=== PATIENT | female | born 1985 | race Caucasian/White ===

== ENCOUNTER 2016-10-04 15:12 | Emergency (ER) | payer OTHER ==
--- NOTE | ~2016-10-04 | ER ---
PATIENT'S NAME: BAN MEI [facility] AGE: 31 Y [address] ROOM: [place] [id number] LOCATION: [facility] ADMIT DATE: 10/04/2016 ER/Outpatient Report DISCHARGE DATE: 10/04/2016 FAMILY PHYSICIAN: Dee Mei MD ATTENDING PHYSICIAN: Bradley Lin Time of patient arrival: 1512 hours. Time of patient evaluation: 1525 hours. CHIEF COMPLAINT: Thumb laceration. HISTORY OF PRESENT ILLNESS: This is a 31-year-old female, who presents to the ER, who states that she was cutting a pineapple with a pineapple corer. She states that she cut her left thumb just prior to arrival. She states that it did bleed quite a bit, and she states she is not able to flex the distal portion of her thumb down. She states that she is not up-to-date on her tetanus shot, and she denies any other injury at this time. ALLERGIES: NO KNOWN ALLERGIES. MEDICATIONS: None. PAST MEDICAL HISTORY: Negative. PAST SURGERIES: She has had ACL repair. SOCIAL HISTORY: She drinks alcohol occasionally. Denies any smoking use. REVIEW OF SYSTEMS: CONSTITUTIONAL: Denies any change in weight or fatigue. MUSCULOSKELETAL: Complaining of left thumb laceration. HEME: No easy bruising or bleeding. SKIN: No lesions or rashes. PHYSICAL EXAMINATION: VITAL SIGNS: Weight 84 kg taken, pulse 76, respirations 18, temperature 97.4 degrees tympanically, saturations 95% on room air. Keyur Coma Score is 15. PATIENT'S NAME: BAN MEI [facility] AGE: 31 Y [address] ROOM: [place] [address] LOCATION: [facility] ADMIT DATE: 10/04/2016 ER/Outpatient Report DISCHARGE DATE: 10/04/2016 FAMILY PHYSICIAN: Dee Mei MD ATTENDING PHYSICIAN: Bradley Lin GENERAL: Alert, calm, well-developed female, in no acute distress. EXTREMITIES: No clubbing or cyanosis. MUSCULOSKELETAL: She is unable to flex the distal aspect of her left thumb. She has good extension with the thumb. She has good sensation distally to the distal aspect of the left thumb. SKIN: She has a 2 cm laceration noted through the volar side of her left thumb through the distal joint. LABORATORY DATA: None were done. X-RAYS: None were done. IMPRESSION: 2 cm left thumb laceration with possible tendon involvement. ASSESSMENT AND PLAN: I discussed the patient's care with Dr. Lin. Dr. Lin also evaluated the patient. I did cleanse the site with normal saline, numbed the site with 1% lidocaine, and cleansed with Betadine and flushed thoroughly with normal saline. I was unable to visualize any tendons to the left thumb and after the patient was numbed up she still had decreased range of motion of her thumb. The patient does not have an orthopedic preference; therefore, I called Dr. Landa, who is on-call for Trauma call and notified him of the patient. He states that we can tack the skin down, place her in a splint in neutral position, and have her follow up with him in a week's time. I did clean the site with normal saline. Numbed the site with 1% lidocaine. Cleaned with betadine and flushed with normal saline. Repaired the laceration with 4.0 Ethilon. We did cleanse the area, dressed with antibiotic ointment, and bandaged and splinted in a neutral position. We will dismiss her to home with a prescription for Keflex to use as directed. She may use Tylenol or ibuprofen if needed. She should follow up with Dr. Landa in a week's time for followup care. The patient understands and agrees with care. CHAVA GALDAMEZ PA-C FOR MD LACIE BELL/kaushal /[id number] I have personally evaluted the patient and wound. I have reviewed the documentation above and agree with the assessment and plan. Bradley Lin MD d: 10/04/169 t: 10/07/166, OUTPATIENT REPORT
[~2016-10-04 15:12] MED LIST: MOTRIN800 MG PO; PERCOCET 5-3251 EACH PO; PRENATAL 1+1)(P1 TAB PO; VALTREX (NON-F500 MG PO
== END 2016-10-04 16:28 | disposition disaster alternative care site (69) ==
LOC: GACC 15:12
PROC: 0HQGXZZ Repair Left Hand Skin, External Approach (ICD-10-PCS; principal; 2016-10-04)
DX: S61.012A Laceration without foreign body of left thumb without damage to nail, initial encounter (principal); Z23 Encounter for immunization; W45.8XXA Other foreign body or object entering through skin, initial encounter

== ENCOUNTER → 2016-10-08 | Outpatient (CLI) | payer OTHER | END | disposition disaster alternative care site (69) | LOC: GRAD 07:31 | DX: S61.012A Laceration without foreign body of left thumb without damage to nail, initial encounter (principal); M79.645 Pain in left finger(s) ==